=== PATIENT | female | born 1990 | race Caucasian/White ===

== ENCOUNTER 2018-08-15 05:38 | Inpatient (IN) | payer OTHER ==
[~2018-08-15] VITALS: Ht 167.7 cm; Wt 89.1 kg
[2018-08-15] VITALS (18 sets, daily range): BP systolic 116–138; BP diastolic 67–95; PULSE 61–93; TEMP 97.8–98.8
[~2018-08-15 05:38] MED LIST: IBU800 M1 PO; NORMODYNE200 MG PO; PERCOCET 325 MG1 TA2 PO; PRENATAL1 TA7 PO
[2018-08-15] MEDS ORDERED: COLACE 100100 MG/CAP PO (06:20)
[2018-08-15 06:43] LABS: BASO % 0.2 % (0.0-2.0); EOS # 0.1 (0.0-0.7); GRAN % 57.9 % (42.2-75.2); HEMOGLOBIN 10.9 g/dl (12.5-16.0); LYMPH # 1.8 (1.2-3.4); LYMPH % 33.6 % (20.0-51.0); MEAN CELL VOLUME 86 fl (80.0-100.0); MEAN CORPUSCULAR HEMOGLOBIN 29 pg (27.0-31.0); MEAN CORPUSCULAR HGB CONC 33 g/dl (33.0-37.0); MEAN PLATELET VOLUME 11.5 fl (7.4-10.4); MONO # 0.4 (0.1-0.6); MONO % 6.9 % (1.7-9.3); PLATELET COUNT 180 K/mm3 (130-400); RED BLOOD COUNT 3.81 M/mm3 (4.10-5.30); REDCELL DISTRIBUTION WIDTH-CV 12.3 % (11.5-14.5)
[2018-08-15 06:48] LABS: HEMATOCRIT 32.7 % (37.0-47.0)
[2018-08-16 04:45] VITALS: BP 126/74; PULSE 58; TEMP 97.9
[2018-08-16 07:35] VITALS: BP 122/78; PULSE 68; TEMP 97.5
[2018-08-16] MEDS ORDERED: IBU800 M1 PO (07:43)
[2018-08-16] MEDS ORDERED: PERCOCET 325 MG1 TA2 PO (07:43)
[2018-08-16 16:45] VITALS: BP 127/88; PULSE 64; TEMP 97.6
[2018-08-16 20:30] VITALS: BP 118/74; PULSE 67; TEMP 97.5
[2018-08-17 07:10] VITALS: BP 115/75; PULSE 64; TEMP 97.9
[2018-08-17 21:00] VITALS: BP 121/77; PULSE 72; TEMP 97.5
[2018-08-18 06:56] VITALS: BP 134/87; PULSE 66; TEMP 98.6
== END 2018-08-18 11:05 | disposition home or self-care (01) | DRG 788 ==
LOC: OB 05:38 → LDR 15:57 → OB 08-18 11:05
PROVIDERS: Student in an Organized Health Care Education/Training Program
PROC: 10D00Z1 Extraction of Products of Conception, Low, Open Approach (ICD-10-PCS; principal; 2018-08-15)
DX: O34.211 Maternal care for low transverse scar from previous cesarean delivery (principal); Z3A.39 39 weeks gestation of pregnancy; Z37.0 Single live birth; O99.344 Other mental disorders complicating childbirth; F41.9 Anxiety disorder, unspecified
CPT/HCPCS: J0690; J1885; J2175; J2370; J2405; J2550; J2590; J3010; J7120

== ENCOUNTER 2020-02-07 07:31 | Inpatient (IN) | payer OTHER ==
[~2020-02-07] VITALS: Ht 167.6 cm; Wt 89.5 kg
[2020-02-07] VITALS (26 sets, daily range): BP systolic 107–153; BP diastolic 55–99; PULSE 68–89; TEMP 97.5–98.2
[~2020-02-07 07:31] MED LIST changes: +COLACE 100100 MG/CAP PO
--- NOTE | 2020-02-07 10:30 | NUR ---
PATIENT HERE TO 222 FOR REPEAT SECTION. PATIENT CHANGED INTO GOWN. ON EFM. IV STARTED. CONSENTS SIGEND. ASSESMENT COMPLETE. PATIENT DENIES BLEEDING, OR LEAKING OF FLUID. PATIENT STATES SHE IS HAVING MILD CONTRACTIONS. AT BEDSIDE
[2020-02-07] MEDS ORDERED: LEXAPRO 10MG10 MG PO (10:55)
[2020-02-07 11:12] LABS: BASO % 0.4 % (0.0-2.0); EOS % 0.4 % (0-4.0); GRAN # 5.4 (1.4-6.5); HEMOGLOBIN 13.6 g/dl (12.5-16.0); LYMPH # 2.3 (1.2-3.4); LYMPH % 27.4 % (20.0-51.0); MEAN CELL VOLUME 87 fl (80.0-100.0); MEAN CORPUSCULAR HEMOGLOBIN 29 pg (27.0-31.0); MEAN CORPUSCULAR HGB CONC 33 g/dl (33.0-37.0); MEAN PLATELET VOLUME 12.3 fl (7.4-10.4); MONO # 0.5 (0.1-0.6); MONO % 5.8 % (1.7-9.3); PLATELET COUNT 183 K/mm3 (130-400); RED BLOOD COUNT 4.71 M/mm3 (4.10-5.30); REDCELL DISTRIBUTION WIDTH-CV 13.1 % (11.5-14.5)
--- NOTE | 2020-02-07 11:47 | NUR ---
PATIENT ON EFM FROM 7012-4111 CONTRACTIONS EVERY 4-10 MINUTES
[2020-02-07 15:57] LABS: COLLECTION METHOD CATHETER
[2020-02-07 16:05] LABS: MUCOUS Present /lpf; PH 5 (5-8); SQUAMOUS EPITHELIAL 0-2 /hpf; URINE APPEARANCE Clear; URINE BACTERIA Rare /hpf; URINE BILIRUBIN Negative (NEGATIVE); URINE BLOOD Negative (NEGATIVE); URINE COLOR Yellow; URINE GLUCOSE Negative (NEGATIVE); URINE KETONE Negative (NEGATIVE); URINE LEUKOCYTE ESTERASE Negative (NEGATIVE); URINE NITRATE Negative (NEGATIVE); URINE PROTEIN(semi-quant) Negative (NEGATIVE); URINE RBC 0-2 /hpf; URINE UROBILINOGEN Negative (NEGATIVE); URINE WBC 0-2 /hpf
[2020-02-07 16:12] LABS: ALBUMIN 2.9 gm/dL (3.5-5.0); BILIRUBIN,TOTAL 0.4 mg/dL (0.0-1.0); CALCIUM 8.6 mg/dL (8.4-10.2); CREATININE, serum 1.16 (0.52-1.25); TOTAL PROTEIN 6.2 gm/dL (6.4-8.2)
--- NOTE | 2020-02-07 17:41 | NUR ---
patient states her legs are tingly
[2020-02-08] VITALS (39 sets, daily range): BP systolic 104–152; BP diastolic 67–102; PULSE 54–76; TEMP 97.5–98.2
[2020-02-08 07:17] LABS: MEAN CELL VOLUME 90 fl (80.0-100.0); MEAN CORPUSCULAR HGB CONC 33 g/dl (33.0-37.0); MEAN PLATELET VOLUME 11.8 fl (7.4-10.4); PLATELET COUNT 134 K/mm3 (130-400); RED BLOOD COUNT 3.82 M/mm3 (4.10-5.30); REDCELL DISTRIBUTION WIDTH-CV 13.4 % (11.5-14.5)
[2020-02-08 07:28] LABS: HEMOGLOBIN 11.4 g/dl (12.5-16.0); MEAN CORPUSCULAR HEMOGLOBIN 30 pg (27.0-31.0)
[2020-02-08 07:29] LABS: HEMATOCRIT 34.2 % (37.0-47.0)
[2020-02-08 07:33] LABS: ALBUMIN 2.6 gm/dL (3.5-5.0); BILIRUBIN,TOTAL 0.3 mg/dL (0.0-1.0); CALCIUM 7.1 mg/dL (8.4-10.2); CREATININE, serum 1.17 (0.52-1.25); POTASSIUM 4.2 mmol/L (3.4-5.0); TOTAL PROTEIN 5.5 gm/dL (6.4-8.2)
[2020-02-08] MEDS ORDERED: PERCOCET 325 MG1 TA2 PO (08:58)
[2020-02-08] MEDS ORDERED: NORMODYNE200 MG PO (08:58)
[2020-02-08] MEDS ORDERED: IBU800 M1 PO (08:58)
[2020-02-08 09:57] LABS: BAND 15 % (0-10); LYMPHOCYTE 14 % (20.0-51.0); NEUTROPHILS 67 % (42.0-75.2)
[2020-02-08 09:58] LABS: HYPOCHROMIA 1+; PLATELET ESTIMATE NORMAL (NORMAL)
[2020-02-08 09:59] LABS: OVALOCYTES 1+
--- NOTE | 2020-02-08 15:46 | NUR ---
1400 PATIENT SITS ON EDGE OF BED AND STANDS AT BEDSIDE
--- NOTE | 2020-02-08 16:43 | NUR ---
1630 MAG OFF AT THIS TIME. IVF HEPLOCKED TIMES 2. PATIENT DENIES NEEDS
[2020-02-09 01:00] VITALS: BP 144/93; PULSE 67; TEMP 97.9
[2020-02-09 05:28] VITALS: BP 125/93; PULSE 72; TEMP 98.1
[2020-02-09 07:51] LABS: HEMOGLOBIN 11.8 g/dl (12.5-16.0); MEAN CELL VOLUME 91 fl (80.0-100.0); MEAN CORPUSCULAR HEMOGLOBIN 29 pg (27.0-31.0); MEAN CORPUSCULAR HGB CONC 32 g/dl (33.0-37.0); MEAN PLATELET VOLUME 12.2 fl (7.4-10.4); PLATELET COUNT 159 K/mm3 (130-400); RED BLOOD COUNT 4.04 M/mm3 (4.10-5.30); REDCELL DISTRIBUTION WIDTH-CV 13.8 % (11.5-14.5)
[2020-02-09 07:55] LABS: HEMATOCRIT 36.7 % (37.0-47.0)
[2020-02-09 08:00] VITALS: BP 158/98; PULSE 68; TEMP 98.1
[2020-02-09 08:01] LABS: ALBUMIN 2.9 gm/dL (3.5-5.0); BILIRUBIN,TOTAL 0.4 mg/dL (0.0-1.0); CALCIUM 7.5 mg/dL (8.4-10.2); CREATININE, serum 1.08 (0.52-1.25); POTASSIUM 4.1 mmol/L (3.4-5.0)
[2020-02-09] MEDS ORDERED: PROCARDIA XL 3030 MG PO (09:06)
--- NOTE | 2020-02-09 10:41 | NUR ---
NIEVES LEFT WRIST DC'D. PATIENT UP TO SHOWER. TOLERATES WELL
[2020-02-09 12:00] VITALS: BP 130/80; PULSE 68; TEMP 98.1
[2020-02-09 16:12] VITALS: BP 145/89; PULSE 78; TEMP 98.1
[2020-02-09 19:50] VITALS: BP 130/94; PULSE 83; TEMP 98
[2020-02-10 00:05] VITALS: BP 141/94; PULSE 79
[2020-02-10 03:20] VITALS: BP 126/92; PULSE 75
[2020-02-10 07:00] VITALS: BP 130/93; PULSE 67; TEMP 98.1
[2020-02-10 07:05] LABS: HEMOGLOBIN 11.1 g/dl (12.5-16.0); MEAN CELL VOLUME 91 fl (80.0-100.0); MEAN CORPUSCULAR HEMOGLOBIN 29 pg (27.0-31.0); MEAN CORPUSCULAR HGB CONC 32 g/dl (33.0-37.0); MEAN PLATELET VOLUME 11.6 fl (7.4-10.4); PLATELET COUNT 179 K/mm3 (130-400); RED BLOOD COUNT 3.83 M/mm3 (4.10-5.30); REDCELL DISTRIBUTION WIDTH-CV 13.8 % (11.5-14.5)
[2020-02-10 07:09] LABS: ALBUMIN 2.7 gm/dL (3.5-5.0); BILIRUBIN,TOTAL 0.4 mg/dL (0.0-1.0); CALCIUM 8.1 mg/dL (8.4-10.2); CREATININE, serum 0.95 (0.52-1.25); POTASSIUM 3.9 mmol/L (3.4-5.0); TOTAL PROTEIN 5.7 gm/dL (6.4-8.2)
[2020-02-10 07:10] LABS: HEMATOCRIT 34.8 % (37.0-47.0)
[2020-02-10 16:00] VITALS: BP 123/78; PULSE 82; TEMP 98
[2020-02-10 19:30] VITALS: BP 119/78; PULSE 86; TEMP 98.8
[2020-02-11 05:15] VITALS: BP 136/88; PULSE 66; TEMP 98.2
[2020-02-11 07:01] VITALS: BP 137/86; PULSE 73; TEMP 97.5
[2020-02-11] MEDS ORDERED: NEWMANS TOP (11:13)
--- NOTE | 2020-02-11 11:40 | NUR ---
Discharge instructions given, pt verbalizes understanding. Bands matched and hugs tag removed. 1200:To personal vehicle.
== END 2020-02-11 12:00 | disposition home or self-care (01) | DRG 788 ==
LOC: LDR 07:31 → OB 10:22
PROVIDERS: ADMIT Student in an Organized Health Care Education/Training Program
PROC: 10D00Z1 Extraction of Products of Conception, Low, Open Approach (ICD-10-PCS; principal; 2020-02-07)
PROC: 0HBAXZZ Excision of Inguinal Skin, External Approach (ICD-10-PCS; 2020-02-07)
DX: O34.211 Maternal care for low transverse scar from previous cesarean delivery (principal); O99.344 Other mental disorders complicating childbirth; F41.9 Anxiety disorder, unspecified; O99.820 Streptococcus B carrier state complicating pregnancy; O14.15 Severe pre-eclampsia, complicating the puerperium; O26.893 Other specified pregnancy related conditions, third trimester; O77.0 Labor and delivery complicated by meconium in amniotic fluid; L91.0 Hypertrophic scar; L90.5 Scar conditions and fibrosis of skin; Z3A.39 39 weeks gestation of pregnancy; Z37.0 Single live birth
CPT/HCPCS: J0690; J1885; J2175; J2405; J2550; J2590; J3010; J3475; J7120